=== PATIENT | female | born 1980 | race Caucasian/White ===

== ENCOUNTER 2018-06-21 05:51 | Day surgery (SDC) | payer BC ==
[2018-06-18 09:18] VITALS: BMI 35.6
[2018-06-21] MEDS ORDERED: Lidocaine 1% (PF) 30 ML VIAL ONE ×2 (06:36→09:59)
[2018-06-21] MEDS ORDERED: Gentamicin 80 MG/2 ML VIAL ONE ×2 (06:36→08:19)
[2018-06-21] MEDS ORDERED: EPINEPHrine 1 MG/ML AMP ONE ×3 (06:36→09:59)
[2018-06-21] MEDS ORDERED: Bupivacaine/Epinephrine 0.25% 30 ML VIAL ONE (06:36)
[2018-06-21] MEDS ORDERED: Sodium Chloride 0.9% 20 ML ONE ×2 (06:36→08:19)
[2018-06-21] MEDS ORDERED: CEFAZOLIN 2 GM/50 ML BAG ONE (06:42)
[2018-06-21] MEDS ORDERED: Heparin 5,000 UNITS/ML VIAL ONE (06:42)
[2018-06-21] MEDS ORDERED: Fentanyl 250 MCG/5 ML VIAL ONE (06:56)
[2018-06-21] MEDS ORDERED: Midazolam HCl 2 mg/2 ml Vial ONE (07:10)
[2018-06-21] MEDS ORDERED: Fentanyl 100 MCG/2 ML VIAL ONE ×2 (11:08→12:05)
--- NOTE | 2018-06-21 12:04 | EKG ---
Test Reason : PREOP Blood Pressure : / mmHG Vent. Rate : 082 BPM Atrial Rate : 082 BPM P-R Int : 148 ms QRS Dur : 086 ms QT Int : 382 ms P-R-T Axes : 058 028 033 degrees QTc Int : 446 ms Normal sinus rhythm Normal ECG When compared with ECG of 12-MAY-2016 16:51, No significant change was found Confirmed by THAD FAY ([id number]) on 06/21/2018 12:03:43 PM Referred By: AMANDA Confirmed By:THAD FAY
[2018-06-21] MEDS ORDERED: Promethazine HCl 25 MG/ML VIAL ONE (13:13)
[2018-06-21] MEDS ORDERED: Sodium Chloride 0.9% 10 ML ONE (13:13)
[2018-06-21] MEDS ORDERED: HYDROcodone/Acetaminophen 5/325 mg Tablet ONE (13:46)
[2018-06-21] MEDS ORDERED: Ketorolac Tromethamine 30 MG/ML VIAL ONE (20:14)
[2018-06-21] MEDS ORDERED: Dexamethasone 20 MG/5 ML VIAL ONE (20:14)
[2018-06-21] MEDS ORDERED: Ondansetron PF 4 MG/2 ML Vial ONE (20:14)
[2018-06-21] MEDS ORDERED: Lidocaine 1% PF 5 ML VIAL ONE (20:14)
[2018-06-21] MEDS ORDERED: PHENYLEPHRINE-NS 100 MCG/ML 10 ML SYRINGE ONE (20:14)
[2018-06-21] MEDS ORDERED: PROPOFOL 200 MG/20 ML VIAL ONE (20:14)
[2018-06-21] MEDS ORDERED: Metoclopramide HCl 10 MG/2 ML VIAL ONE (20:14)
--- NOTE | 2018-06-22 11:18 | OP ---
DATE OF PROCEDURE: 06/21/2018 PREOPERATIVE DIAGNOSIS: Macromastia. POSTOPERATIVE DIAGNOSIS: Macromastia. PROCEDURE PERFORMED: Bilateral breast reduction (50125.50). DESCRIPTION OF PROCEDURE: Following the induction of adequate anesthesia, the patient was prepped and draped in the usual sterile fashion in supine position. The patient was preoperatively marked for a modified Capellan pattern breast reduction. The nipple was circumcised to run a 42 mm nipple sizer. Skin overlying the inferior pole of the breast was deepithelialized. Skin flaps were then raised superiorly, medially, and laterally. Dermoglandular units were then resected superiorly, medially, and laterally, sculpted in a central mound to protect viability and sensibility. Inverted T-closure was performed with 3-0 PDS and 3-0 Monocryl sutures. Nipple was brought up to a 42 mm nipple defect in similar . A similar procedure was done on each side. All bernal were copiously irrigated and inspected for meticulous hemostasis. The patient at the conclusion of the breast reduction underwent a cosmetic procedure. Please see anesthesia nursing notes for the timeline division. Job ID: [id number]
--- NOTE | 2018-07-12 15:28 | OP ---
DATE OF PROCEDURE: 06/21/2018 PREOPERATIVE DIAGNOSIS: Abdominal lipodystrophy. POSTOPERATIVE DIAGNOSIS: Abdominal lipodystrophy. PROCEDURE PERFORMED: Liposuction of abdomen. INDICATIONS FOR PROCEDURE: The patient is a 37-year-old female, who is undergoing a staged liposuction of abdomen followed by a planned abdominoplasty in 9 months to a year. The liposuction procedure is done on same day DESCRIPTION OF PROCEDURE: Following conclusion of the breast reduction, the patient's abdomen, abdominal lipodystrophy which had been preoperatively marked was infused with tumescent fluid. After this had adequate time to take effect, SAFE liposuction was performed with separation of the fat followed by aspiration and fat equalization test with assymetry. The procedure was performed to a series of stab incisions around the periphery of the abdomen to allow access to the desired areas. The patient tolerated the procedure well. A drain was placed through a central stab incision. The stab incisions were closed with 3-0 Monocryl suture. The patient tolerated the procedure well. Job ID: [id number]
== END 2018-06-21 17:00 | disposition home or self-care (01) ==
LOC: SDC 05:51
PROVIDERS: ATTEND Plastic Surgery
PROC: 0J083ZZ Alteration of Abdomen Subcutaneous Tissue and Fascia, Percutaneous Approach (ICD-10-PCS; principal; 2018-06-21)
PROC: 0HBV0ZZ Excision of Bilateral Breast, Open Approach (ICD-10-PCS; principal; 2018-06-21)
DX: N62 Hypertrophy of breast (principal); E88.1 Lipodystrophy, not elsewhere classified; Z79.899 Other long term (current) drug therapy; Z98.84 Bariatric surgery status
CPT/HCPCS: 88305; 93005; 93010; 96374; J0171; J1100; J1580; J1644; J1885; J2001; J2250; J2405; J2550; J2704; J2765; J3010; J3370; J3490